=== PATIENT | female | born 1970 | race Caucasian/White ===

== ENCOUNTER 2021-06-08 15:16 | Outpatient (REF) | payer OTHER, SELFPAY ==
[2021-06-09 04:26] LABS: HIV AB/AG Nonreactive (Nonreactive)
== END 2021-06-08 15:17 | disposition home or self-care (01) ==
LOC: HO.LAB 15:16
PROVIDERS: PCP Internal Medicine; Visit Provider Nurse Practitioner Psychiatric/Mental Health
DX: F33.2 Major depressive disorder, recurrent severe without psychotic features (principal)
CPT/HCPCS: 36415; 87389

== ENCOUNTER 2021-07-01 10:45 | Outpatient (RCR) | payer OTHER, MEDICARE, SELFPAY ==
--- NOTE | 2021-06-04 14:20 | PC.NURSE ---
Case opened in treatment team
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
[2021-06-05 13:33] VITALS: BMI 40.3
--- NOTE | 2021-06-05 13:59 | PC.ADMIT ---
Patient is a 50 year old female who self referred back to [facility] d/t increase in depression, anxiety, and PTSD. Patient reports she was at [facility] during the start of the pandemic and stated the program was helpful. Patient reports stressors include prior to Thanksgiving she started noticing an increase in depression and anxiety symptoms as she reports her left her three years ago Thankslupe Bolden and her last boyfriend left her last year at this time. Patient struggling with depression and anxiety and is tearful. Reports taking a leave of absence from work d/t symptoms. Patient also reports she was dx with an STD Gonorrhea and was experiencing pelvic pain. She stated was treated with Penicillin IM and went to [facility] where she had a pelvic and abdominal CT scan to f/u. Patient is alert and oriented x4. calm and cooperative. tearful at times during the assessment. Denied SI. Medications reconciled with patient and patient's pharmacy. Patient reports taking medications as prescribed. Patient is interested in HIV testing. Eugenie Espinoza NP is aware.
--- NOTE | 2021-06-10 16:08 | HO.PHPPROGNO ---
Subjective Subjective Date of Service: 06/10/21 Reason For Visit: MDD recurrent, Borderline Personality D/o, Anxiety Guardianship: No Medical Problems Affecting Mental Status: No Interim History: Zena reports feeling stable, but teary at times . She explains that she is doing okay overall. She reports her stepfather recently, and that she has difficulty with a lot of relationships that have ended around this time of year. She reports that she feels come will in groups, and she feels safe and them. Denies any thoughts of harm to self or others, no safety concern at this time. Reports that she did have some difficulty falling asleep last night, but she believes it is more related to time of year rather than medications. She reported that she used lorazepam last night to help fall asleep. She explains that she believes the transition regarding her med changes from Effexor to Cymbalta at is going smoothly, but she is finding herself sweating at night. She believes it is from the medication, and not possibly being perimenopausal. She does have an upcoming appointment with her outpatient psych provider, as well as with her tax collection coordinator. She will discuss the symptoms further with each of them. Medication Compliance: Yes Side effects from medications: Yes (diaphoresis at night) Attending Groups: Yes Review of Systems Acute medical concerns: No Medical Review of Systems: unchanged Review of Systems Review of Systems Yes all other systems are reviewed and are negative Constitutional: Reports no additional constitutional complaints Mental Status Exam Mental Status Exam Narrative: Well-developed, obese female, in NAD. Patient Appearance: Fatigued and Appropriate Patient Orientation: Person, Place, Time and Situation Level of Consciousness: Awake, Appropriate and Alert Patient Behavior: Appropriate, Cooperative and Good Eye Contact Mood Description: Appropriate and Depressed Affect Description: Appropriate and Depressed Patient Cognition Impaired: No Ability to Follow Directions: Excellent Speech Pattern: Clear, Appropriate, Spontaneous Speech and Coherent Memory Description: Intact Hallucinations: None Delusions: Not Present Thought Process: Intact, Goal Oriented and Linear Thought Content: positive for Intact, positive for Goal Oriented and positive for Linear Depressive Symptoms: Increased Anxiety, Difficulty Sleeping, Crying Spells, Loss of Int. in Activity, Feelings of Worthlessness, Hopelessness, Feelings of Guilt, Unhappiness, Increased Fatigue and Low Self Esteem Judgement: Fair Diagnostics Vital Signs (24Hr): BMI result Body Mass Index 40.3 Assessment & Plan Assessment & Plan (1) Major depressive disorder, recurrent severe without psychotic features: Status: Acute Code(s): F33.2 - Major depressive disorder, recurrent severe without psychotic features Assessment and Plan: Overall stable, no SI, no safety concern. Continues with dysphoric mood, teary at times, but states overall mood is okay. Taking medications as prescribed. Currently in process of taper down off of Effexor and on to Cymbalta. Reports some sweating at night, not sure if it is due to the medication transition. No other concerns at this time. Participating in groups, finding them helpful. (2) Generalized anxiety disorder: Status: Acute Code(s): F41.1 - Generalized anxiety disorder (3) Borderline personality disorder: Status: Acute Code(s): F60.3 - Borderline personality disorder Assessment and Plan: 1. No medication changes at this time. Client to continue medication regimen as prescribed by her outpatient provider. 2. Follow-up as per protocol. Patient educated on: diagnosis, medication risk/benefits and therapeutic strategies Informed Consent: understands Reason for contiued partial hosp. stay Substantial Risk for: inability to function and med/psych decompensation Certification I certify that partial hospital treatment is medically necessary due to the symptoms and problems resulting from the patient's mental illness and the failure to treat the patient at the partial hospital level of care would likely result in the patient requiring inpatient psychiatric care which could not be prevented at a less intensive level of care. I spent minutes with the patient and/or on the patient floor today, greater than?50% of which was spent counseling/coordinating care. Discharge Plan Discharge Attending provider: Jesus Ramirez Primary Care Provider: Florin Lima Medications: No Action clonazepam [Klonopin] 0.5 mg Tablet 0.5 mg PO DAILY PRN (Reason: Anxiety) RF: 0 venlafaxine [Effexor XR] 150 mg Capsule,Extended Release 24hr 150 mg PO DAILY RF: 0 valacyclovir [Valtrex] 500 mg Tablet 500 mg PO DAILY RF: 0 trazodone 100 mg Tablet 400 mg PO BEDTIME PRN (Reason: Insomnia) RF: 0 lorazepam 2 mg Tablet 1 mg PO DAILY RF: 0 lorazepam 2 mg Tablet 3 mg PO BEDTIME RF: 0 montelukast [Singulair] 10 mg Tablet 10 mg PO BEDTIME RF: 0 albuterol sulfate 90 mcg/actuation Hfa Aerosol Inhaler 2 puff INHALATION Q6H PRN (Reason: Shortness Of Breath) RF: 0 dextroamphetamine-amphetamine [Adderall XR] 30 mg Capsule,Extended Release 24hr 60 mg PO DAILY RF: 0 naproxen 500 mg Tablet 500 mg PO BID RF: 0 duloxetine [Cymbalta] 30 mg Capsule,Delayed Release(Dr/Ec) 60 mg PO DAILY RF: 0 oxycodone 10 mg Tablet 10 mg PO Q4H PRN (Reason: Pain) RF: 0 Rexulti 4 mg Tablet 4 mg PO BEDTIME RF: 0 Referrals: Florin Lima MD [Primary Care Provider] - 1 Week Telehealth Telehealth Location of provider rendering services: practice address Location of patient: address on file Patient Identification confirmed using: Name, : Yes Telehealth method: video Patient verbally consented to treatment: Yes Patient verbally consented to billing insurance company: Yes Patient informed of any privacy concerns related to visit: Yes Time spent with patient (mins): 15
--- NOTE | 2021-06-17 16:34 | HO.PHPPROGNO ---
Subjective Subjective Date of Service: 06/17/21 Reason For Visit: MDD recurrent, Borderline Personality D/o, Anxiety Guardianship: No Medical Problems Affecting Mental Status: No Interim History: Luz Elena reports feeling ?much better ?today. Reports that Tuesday will be her last day taking Effexor, as she has been tapering down off the medication. Denies any type of side effects during taper down. No thoughts of harm to self or others, no safety concern. Medication Compliance: Yes Side effects from medications: No Attending Groups: Yes Review of Systems Acute medical concerns: No Medical Review of Systems: unchanged Review of Systems Review of Systems Yes all other systems are reviewed and are negative Constitutional: Reports no additional constitutional complaints Mental Status Exam Mental Status Exam Narrative: Well-developed, obese female, in NAD. Patient Appearance: Appropriate Patient Orientation: Person, Place, Time and Situation Level of Consciousness: Awake, Appropriate and Alert Patient Behavior: Appropriate, Cooperative and Good Eye Contact Mood Description: Calm and Appropriate Affect Description: Appropriate and Depressed Patient Cognition Impaired: No Ability to Follow Directions: Excellent Speech Pattern: Clear, Appropriate and Coherent Memory Description: Intact Hallucinations: None Delusions: Not Present Thought Process: Intact, Goal Oriented and Linear Thought Content: positive for Intact, positive for Goal Oriented, positive for Linear and positive for Logical Depressive Symptoms: Increased Anxiety, Difficulty Sleeping, Loss of Int. in Activity, Hopelessness, Feelings of Guilt, Unhappiness, Increased Fatigue and Low Self Esteem Judgement: Fair Diagnostics Vital Signs (24Hr): BMI result Body Mass Index 40.3 Assessment & Plan Assessment & Plan (1) Major depressive disorder, recurrent severe without psychotic features: Status: Acute Code(s): F33.2 - Major depressive disorder, recurrent severe without psychotic features Assessment and Plan: Zena continues with some depression and anxiety symptoms, but reports feeling improved. Describes her mood today as ?much better ?. Services for her mother's partner will be tonight and tomorrow. Mother is staying with her until June 30. She denies any thoughts of harm to self or others, no safety concern. Reports that current medication regimen is working well, and does not feel she has any symptoms that would require any medication adjustments at this time. (2) Generalized anxiety disorder: Status: Acute Code(s): F41.1 - Generalized anxiety disorder (3) Borderline personality disorder: Status: Acute Code(s): F60.3 - Borderline personality disorder Assessment and Plan: 1. Continue with current medications as prescribed. 2. Continue with PHP treatment plan. 3. Follow-up as per protocol. Patient educated on: diagnosis, medication risk/benefits and therapeutic strategies Informed Consent: understands Reason for contiued partial hosp. stay Substantial Risk for: inability to function and med/psych decompensation Certification I certify that partial hospital treatment is medically necessary due to the symptoms and problems resulting from the patient's mental illness and the failure to treat the patient at the partial hospital level of care would likely result in the patient requiring inpatient psychiatric care which could not be prevented at a less intensive level of care. I spent minutes with the patient and/or on the patient floor today, greater than?50% of which was spent counseling/coordinating care. Discharge Plan Discharge Attending provider: Jesus Ramirez Primary Care Provider: Florin Lima Medications: Continued Rexulti 4 mg Tablet 4 mg PO BEDTIME 14 Days Qty: 14 RF: 0 No Action clonazepam [Klonopin] 0.5 mg Tablet 0.5 mg PO DAILY PRN (Reason: Anxiety) RF: 0 venlafaxine [Effexor XR] 150 mg Capsule,Extended Release 24hr 150 mg PO DAILY RF: 0 valacyclovir [Valtrex] 500 mg Tablet 500 mg PO DAILY RF: 0 trazodone 100 mg Tablet 400 mg PO BEDTIME PRN (Reason: Insomnia) RF: 0 lorazepam 2 mg Tablet 1 mg PO DAILY RF: 0 lorazepam 2 mg Tablet 3 mg PO BEDTIME RF: 0 montelukast [Singulair] 10 mg Tablet 10 mg PO BEDTIME RF: 0 albuterol sulfate 90 mcg/actuation Hfa Aerosol Inhaler 2 puff INHALATION Q6H PRN (Reason: Shortness Of Breath) RF: 0 dextroamphetamine-amphetamine [Adderall XR] 30 mg Capsule,Extended Release 24hr 60 mg PO DAILY RF: 0 naproxen 500 mg Tablet 500 mg PO BID RF: 0 duloxetine [Cymbalta] 30 mg Capsule,Delayed Release(Dr/Ec) 60 mg PO DAILY RF: 0 oxycodone 10 mg Tablet 10 mg PO Q4H PRN (Reason: Pain) RF: 0 Referrals: Florin Lima MD [Primary Care Provider] - 1 Week Telehealth Telehealth Location of provider rendering services: practice address Location of patient: address on file Patient Identification confirmed using: Name, : Yes Telehealth method: video Patient verbally consented to treatment: Yes Patient verbally consented to billing insurance company: Yes Patient informed of any privacy concerns related to visit: Yes Time spent with patient (mins): 15
--- NOTE | 2021-06-23 10:48 | P.PNPSP_ITS ---
Subjective Subjective Date of Service: 06/23/21 Reason For Visit: MDD recurrent, Borderline Personality D/o, Anxiety Interim History: I evaluated the pt this morning and upon interview she reports she is still titrating off effexor, as her outpt psych provider did not send the 37.5 mg formulation of effexor and that's what she needed to get off it (does not need refill, as she says this has now been sent in). Otherwise, pt says im doing okay. Pt continues to have psychosocial stressors, attended her mother's partner's and says it was trying. Feels like she is the black sheep of her family. Denies issues with sleep. Says her energy is a little bit lagging, but attributes this to lack of daytime structure and shorter days in the winter. Denies issues attending to ADLs. Appetite is good. Denies having questions or concerns. Medication Compliance: Yes Side effects from medications: No Attending Groups: Yes Review of Systems Acute medical concerns: No Medical Review of Systems: unchanged Mental Status Exam Mental Status Exam Narrative: Well-developed, obese female, in NAD. Patient Appearance:?Appropriate Patient Orientation:?Person, Place, Time and Situation Level of Consciousness:?Awake, Appropriate and Alert Patient Behavior:?Appropriate, Cooperative and Good Eye Contact Mood Description:?Calm and Appropriate Affect Description:?Appropriate and Depressed Patient Cognition Impaired:?No Ability to Follow Directions:?Excellent Speech Pattern:?Clear, Appropriate and Coherent Memory Description:?Intact Hallucinations:?None Delusions:?Not Present Thought Process:?Intact, Goal Oriented and Linear Thought Content:?positive for Intact, positive for Goal Oriented, positive for Linear and positive for Logical Depressive Symptoms:?Increased Anxiety, Difficulty Sleeping, Loss of Int. in Activity, Hopelessness, Feelings of Guilt, Unhappiness, Increased Fatigue and Low Self Esteem Judgment:?Fair Diagnostics Vital Signs (24Hr): BMI result Body Mass Index 40.3 Assessment & Plan Assessment & Plan (1) Borderline personality disorder: Status: Acute Code(s): F60.3 - Borderline personality disorder (2) Generalized anxiety disorder: Status: Acute Code(s): F41.1 - Generalized anxiety disorder (3) Major depressive disorder, recurrent severe without psychotic features: Status: Acute Code(s): F33.2 - Major depressive disorder, recurrent severe without psychotic features Assessment and Plan: Mother is staying with her until June 30.? She denies any thoughts of harm to self or others, no safety concern.?She is continuing to work on titrating off effexor and switching to duloxetine with her outpt psychiatrist. She reports mood stability and does not want med adjustments at this time, does not need refills. Assessment and Plan: 1. Continue with current medications as prescribed. 2. Continue with PHP treatment plan. 3. Follow-up as per protocol. Certification I certify that partial hospital treatment is medically necessary due to the symptoms and problems resulting from the patient's mental illness and the failure to treat the patient at the partial hospital level of care would likely result in the patient requiring inpatient psychiatric care which could not be prevented at a less intensive level of care. I spent minutes with the patient and/or on the patient floor today, greater than?50% of which was spent counseling/coordinating care. Discharge Plan Discharge Attending provider: Jesus Ramirez Primary Care Provider: Florin Lima Additional Instructions: [facility] jordana Talavera [facility] 07/02 @ 4 pm , Alvina Rome MD Medications: Continued Rexulti 4 mg Tablet 4 mg PO BEDTIME 14 Days Qty: 14 RF: 0 No Action clonazepam [Klonopin] 0.5 mg Tablet 0.5 mg PO DAILY PRN (Reason: Anxiety) RF: 0 venlafaxine [Effexor XR] 150 mg Capsule,Extended Release 24hr 150 mg PO DAILY RF: 0 valacyclovir [Valtrex] 500 mg Tablet 500 mg PO DAILY RF: 0 trazodone 100 mg Tablet 400 mg PO BEDTIME PRN (Reason: Insomnia) RF: 0 lorazepam 2 mg Tablet 1 mg PO DAILY RF: 0 lorazepam 2 mg Tablet 3 mg PO BEDTIME RF: 0 montelukast [Singulair] 10 mg Tablet 10 mg PO BEDTIME RF: 0 albuterol sulfate 90 mcg/actuation Hfa Aerosol Inhaler 2 puff INHALATION Q6H PRN (Reason: Shortness Of Breath) RF: 0 dextroamphetamine-amphetamine [Adderall XR] 30 mg Capsule,Extended Release 24hr 60 mg PO DAILY RF: 0 naproxen 500 mg Tablet 500 mg PO BID RF: 0 duloxetine [Cymbalta] 30 mg Capsule,Delayed Release(Dr/Ec) 60 mg PO DAILY RF: 0 oxycodone 10 mg Tablet 10 mg PO Q4H PRN (Reason: Pain) RF: 0 Referrals: Florin Lima MD [Primary Care Provider] - 1 Week Stand Alone Forms: Patient Portal Discharge page
--- NOTE | 2021-06-24 14:55 | PC.NURSE ---
referral was made for a therapist at [facility] they will gat back to me with appointment time.
--- NOTE | 2021-06-30 10:50 | PC.NURSE ---
Patient scheduled for discharge from the program today. Patient reports feeling ready for discharge however is feeling sad as her mother left today. Patient denied SI or any safety issues. She has the crisis number if she ever needed it. Reviewed patient medications with nenita. She reports taking medicaitons as prescrib
--- NOTE | 2021-06-30 11:17 | PC.NURSE ---
Patient is scheduled to discharge from the program today. Patient feeling ready for discharge however she stated she was sad as her mother left today. Denied SI or any safety concerns. She has the crisis number if she ever needed it. reviewed patient medications with patient. she reports taking medications as prescribed.
--- NOTE | 2021-06-30 15:53 | HO.PHPPROGNO ---
Subjective Subjective Date of Service: 06/30/21 Reason For Visit: MDD recurrent, Borderline Personality D/o, Anxiety Interim History: I evaluated the pt this morning and upon interview she reports she is now off the effexor and she did have any disontinuation sx. Tomorrow is last day at [facility]. Says she is doing okay, feels a little sad mom as her left today, feeling lonely but talks to her mom daily. Goes back to work on Tuesday, which she is looking forward to. Says I'm fine with her medication right now. Feeling stable, safe. Overall, says I feel like myself again. Sleep is fine. Appetite is good. Says I think the cymbalta has taken away a lot of my pains and aches. Has a new therapist, sees her on .? Medication Compliance: Yes Side effects from medications: No Attending Groups: Yes Review of Systems Acute medical concerns: No Medical Review of Systems: unchanged Mental Status Exam Mental Status Exam Narrative: Well-developed, obese female, in NAD. Patient Appearance:?Appropriate Patient Orientation:?Person, Place, Time and Situation Level of Consciousness:?Awake, Appropriate and Alert Patient Behavior:?Appropriate, Cooperative and Good Eye Contact Mood Description:?Calm and Appropriate, better Affect Description:?Appropriate and calm Patient Cognition Impaired:?No Ability to Follow Directions:?Excellent Speech Pattern:?Clear, Appropriate and Coherent Memory Description:?Intact Hallucinations:?None Delusions:?Not Present Thought Process:?Intact, Goal Oriented and Linear Thought Content:?positive for Intact, positive for Goal Oriented, positive for Linear and positive for Logical Judgment:?Fair Diagnostics Vital Signs (24Hr): BMI result Body Mass Index 40.3 Assessment & Plan Assessment & Plan (1) Major depressive disorder, recurrent severe without psychotic features: Status: Acute Code(s): F33.2 - Major depressive disorder, recurrent severe without psychotic features (2) Borderline personality disorder: Status: Acute Code(s): F60.3 - Borderline personality disorder (3) Generalized anxiety disorder: Status: Acute Code(s): F41.1 - Generalized anxiety disorder Assessment and Plan: Pt does not want med adjustments, has been working with her OP psychiatrist, Dr. Alvina Rome on med changes and reports positive benefit on cymbalta for sx of depression and anxiety. Stable, says she feels safe and that PHP groups have been helpful. 1. Continue with current medications as prescribed. 2. Continue with PHP treatment plan. 3. Follow-up as per protocol. 4. Discharge upon stabilization. Does not need refills. Patient educated on: medication risk/benefits and therapeutic strategies Certification I certify that partial hospital treatment is medically necessary due to the symptoms and problems resulting from the patient's mental illness and the failure to treat the patient at the partial hospital level of care would likely result in the patient requiring inpatient psychiatric care which could not be prevented at a less intensive level of care. I spent minutes with the patient and/or on the patient floor today, greater than?50% of which was spent counseling/coordinating care. Discharge Plan Discharge Attending provider: Jesus Ramirez Primary Care Provider: Florin Lima Additional Instructions: MARILU [employer]IE[employer] EXECUT[employer] MANAGING DIRECTOR 07/02 @ 4 pm , Alvina Rome MD Medications: Continued Rexulti 4 mg Tablet 4 mg PO BEDTIME 14 Days Qty: 14 RF: 0 No Action clonazepam [Klonopin] 0.5 mg Tablet 0.5 mg PO DAILY PRN (Reason: Anxiety) RF: 0 valacyclovir [Valtrex] 500 mg Tablet 500 mg PO DAILY RF: 0 trazodone 100 mg Tablet 400 mg PO BEDTIME PRN (Reason: Insomnia) RF: 0 lorazepam 2 mg Tablet 1 mg PO DAILY RF: 0 lorazepam 2 mg Tablet 3 mg PO BEDTIME RF: 0 montelukast [Singulair] 10 mg Tablet 10 mg PO BEDTIME RF: 0 albuterol sulfate 90 mcg/actuation Hfa Aerosol Inhaler 2 puff INHALATION Q6H PRN (Reason: Shortness Of Breath) RF: 0 dextroamphetamine-amphetamine [Adderall XR] 30 mg Capsule,Extended Release 24hr 60 mg PO DAILY RF: 0 naproxen 500 mg Tablet 500 mg PO BID RF: 0 duloxetine [Cymbalta] 30 mg Capsule,Delayed Release(Dr/Ec) 60 mg PO DAILY RF: 0 oxycodone 10 mg Tablet 10 mg PO Q4H PRN (Reason: Pain) RF: 0 Referrals: Florin Lima MD [Primary Care Provider] - 1 Week Stand Alone Forms: Patient Portal Discharge page
== END 2021-07-02 07:12 | disposition home or self-care (01) ==
LOC: HO.PHPA 10:45
PROVIDERS: PCP Internal Medicine; Visit Provider Psychiatry & Neurology Psychiatry
DX: F33.2 Major depressive disorder, recurrent severe without psychotic features (principal); F41.1 Generalized anxiety disorder; F60.3 Borderline personality disorder; Z79.899 Other long term (current) drug therapy
CPT/HCPCS: 90791; 90853

== ENCOUNTER 2021-09-02 10:15 | Outpatient (RCR) | payer OTHER, SELFPAY ==
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
--- NOTE | 2021-08-05 15:14 | PC.ADMIT ---
Patient is a 50 year old female who was referred to [facility] by her psychiatrist Dr Fabian Rome d/t increased sxs of depression and anxiety. Patient denied SI. Reports having thoughts that she is worthless, useless, and am a burden to others. Patient stated she feels lonely and is crying all the time. Patient also stated she has not been able to get a therapist as she is on wait lists for a therapist. Patient stated she started to call out of work d/t symptoms and is currently on a leave of absence from work to work on her mental health. She stated she found the program helpful when she was here recently over a month ago. Patient is alert and oriented x4. Calm and cooperative. Presents with depressed mood and affect. Medications reconciled with patient and patient's pharmacy. Educated patient about PRN Klonopin including patient reports taking it with Ativan at . Emailed patient safety plan.
--- NOTE | 2021-08-06 14:14 | PC.NURSE ---
case opened in treatment team
--- NOTE | 2021-08-07 12:46 | PC.NURSE ---
Patient called to say she was not going to be able to finish the day as she is sick experiencing some vomiting and diarrhea. Asked if she needed to see a doctor and she stated she would be alright and she is drinking fluids. Denied SI. Stated she has plans for the weekend meeting with friends and being with G[place].
--- NOTE | 2021-08-12 16:07 | HO.PHPPROGNO ---
Subjective Subjective Date of Service: 08/12/21 Reason For Visit: MDD Guardianship: No Medical Problems Affecting Mental Status: No Interim History: Reports feeling ?not that great today ?. Tearful during encounter. Denies SI, either active or passive. Reports that she is ?just really depressed ?, but states ?I am safe?. Reports that she feels her depression has been worsening. She says she has an appointment with her outpatient psychiatrist on August 20, but plans to call the office to see if she can be seen sooner. Does not want any medication changes today. Her medications were reviewed, including each medication, doses, etc.. She states that she is not suicidal, but has been thinking that she may need a higher level of care. We discussed this. She has tried respite in the past, but did not like it. I encouraged her to call crisis, or come to hospital so that we may help her. She states that she ?needs to sit with it for a couple of days ?. She has agreed to call crisis and to notify us if at any time she feels unsafe. Medication Compliance: Yes Side effects from medications: No Attending Groups: Yes Review of Systems Acute medical concerns: No Medical Review of Systems: unchanged Review of Systems Review of Systems Yes all other systems are reviewed and are negative Constitutional: Reports no additional constitutional complaints Mental Status Exam Mental Status Exam Narrative: NAD. Appropriately dressed and groomed. no abnormal movements, no tics / tremors. Patient Appearance: Well Grooomed, Fatigued and Appropriate Patient Orientation: Person, Place, Time and Situation Level of Consciousness: Awake, Appropriate and Alert Patient Behavior: Appropriate, Cooperative, Good Eye Contact and Crying (Tearful at times.) Mood Description: Depressed Affect Description: Depressed Patient Cognition Impaired: No Ability to Follow Directions: Good Speech Pattern: Clear, Appropriate and Coherent Memory Description: Intact Hallucinations: None Delusions: Not Present Perceptual Disturbances: Depersonalization Thought Process: Intact, Goal Oriented and Linear Thought Content: positive for Intact Depressive Symptoms: Increased Anxiety, Diff. Making Decisions, Loss of Int. in Activity, Feelings of Worthlessness, Hopelessness, Isolating-Friends/Family, Feelings of Guilt, Unhappiness, Increased Fatigue, Low Self Esteem, Loss of Energy and Difficulty Concentrating Judgement: Fair Assessment & Plan Assessment & Plan (1) Major depressive disorder, recurrent severe without psychotic features: Status: Acute Code(s): F33.2 - Major depressive disorder, recurrent severe without psychotic features Assessment and Plan: Reports she feels her depression is getting worse. Reviewed medications, does not want increase at this time. Has been contemplating whether or not she may need a higher level of care. Has denies any thought of harm to self or others, no safety concern. Tearful at times. She was encouraged to call crisis and us if at any time she feels unsafe. She stated that she would do so. (2) Generalized anxiety disorder: Status: Acute Code(s): F41.1 - Generalized anxiety disorder (3) Borderline personality disorder: Status: Acute Code(s): F60.3 - Borderline personality disorder Plan 1. Continue with current medication regimen. 2. Continue with current [facility] plan of care. 3. Follow-up as per protocol. Patient educated on: diagnosis, medication risk/benefits and therapeutic strategies Informed Consent: understands Reason for contiued partial hosp. stay Substantial Risk for: harm to self, inability to function, rapid decompensation and med/psych decompensation Certification I certify that partial hospital treatment is medically necessary due to the symptoms and problems resulting from the patient's mental illness and the failure to treat the patient at the partial hospital level of care would likely result in the patient requiring inpatient psychiatric care which could not be prevented at a less intensive level of care. I spent minutes with the patient and/or on the patient floor today, greater than?50% of which was spent counseling/coordinating care. Discharge Plan Discharge Attending provider: Jesus Ramirez Medications: No Action clonazepam [Klonopin] 0.5 mg Tablet 0.5 mg PO DAILY PRN (Reason: Anxiety) 0RF valacyclovir [Valtrex] 500 mg Tablet 500 mg PO DAILY 0RF trazodone 100 mg Tablet 400 mg PO BEDTIME PRN (Reason: Insomnia) 0RF Rx Instructions: 4 tabs QHS PRN lorazepam 2 mg Tablet 1 mg PO DAILY 0RF Rx Instructions: Take 1/2 tab daily in the am lorazepam 2 mg Tablet 3 mg PO BEDTIME 0RF Rx Instructions: Take 1 and 1/2 tab at HS montelukast [Singulair] 10 mg Tablet 10 mg PO BEDTIME 0RF albuterol sulfate 90 mcg/actuation Hfa Aerosol Inhaler 2 puff INHALATION Q6H PRN (Reason: Shortness Of Breath) 0RF dextroamphetamine-amphetamine [Adderall XR] 30 mg Capsule,Extended Release 24hr 60 mg PO DAILY 0RF Rx Instructions: Take 2 tabs daily oxycodone 10 mg Tablet 10 mg PO Q4H PRN (Reason: Pain) 0RF duloxetine 60 mg Capsule,Delayed Release(Dr/Ec) 120 mg PO DAILY 0RF Rx Instructions: Take 2 tabs daily. Rexulti 4 mg tablet 4 mg PO DAILY 0RF lisinopril 5 mg Tablet 5 mg PO DAILY 0RF Label Comments: Patient stated she takes 2 tabs daily??? Pharmacy states 1 tab daily, Picked up at 30 day supply on 06/29/21. bupropion HCl [Wellbutrin XL] 150 mg Tablet Extended Release 24 Hr 150 mg PO QAM 0RF Telehealth Telehealth Location of provider rendering services: practice address Location of patient: address on file Patient Identification confirmed using: Name, : Yes Telehealth method: video Patient verbally consented to treatment: Yes Patient verbally consented to billing insurance company: Yes Patient informed of any privacy concerns related to visit: Yes Time spent with patient (mins): 20
--- NOTE | 2021-08-21 10:56 | HO.PHPPROGNO ---
Subjective Subjective Date of Service: 08/21/21 Reason For Visit: MDD Guardianship: No Medical Problems Affecting Mental Status: No Interim History: Zena describes mood today as I don't really know . Says not really good or bad, in the middle . No SI reported, no safety concern. Has had med changes with outpatient provider: Stopped Wellbutrin. Tapering off of Cymbalta. Started Zoloft. Sitting up appointment with new therapist today through [facility]. Will start working with a woman's anxiety support group through 0. Also in contact with [facility], for possible therapy/support group work. Medication Compliance: Yes Side effects from medications: No Attending Groups: Yes Review of Systems Acute medical concerns: No Medical Review of Systems: unchanged Review of Systems Review of Systems Yes all other systems are reviewed and are negative Constitutional: Reports no additional constitutional complaints Mental Status Exam Mental Status Exam Narrative: NAD. Appropriately dressed and groomed. no abnormal movements, no tics / tremors. Patient Appearance: Well Grooomed and Appropriate Patient Orientation: Person, Place, Time and Situation Level of Consciousness: Awake, Appropriate and Alert Patient Behavior: Appropriate, Cooperative and Good Eye Contact Mood Description: Calm and Appropriate Affect Description: Depressed and Flat Patient Cognition Impaired: No Ability to Follow Directions: Excellent Speech Pattern: Clear, Appropriate and Coherent Memory Description: Intact Hallucinations: None Delusions: Not Present Perceptual Disturbances: Depersonalization Thought Process: Intact, Goal Oriented and Linear Thought Content: positive for Intact, positive for Goal Oriented and positive for Linear Depressive Symptoms: Increased Anxiety, Loss of Int. in Activity, Feelings of Worthlessness, Hopelessness, Feelings of Guilt, Unhappiness, Increased Fatigue, Low Self Esteem and Loss of Energy Judgement: Fair Assessment & Plan Assessment & Plan (1) Major depressive disorder, recurrent severe without psychotic features: Status: Acute Code(s): F33.2 - Major depressive disorder, recurrent severe without psychotic features Assessment and Plan: Reports feeling neither happy or sad, but at some point in middle. Continues with depressive symptoms, no SI at this time, no safety concern. had recent medication changes, due to poor efficacy with Cymbalta and Wellbutrin. Has been started on Zoloft, and process of tapering up. Has discuss plan with outpatient provider, that if continues with symptoms of depression after trial of Zoloft, will consider TMS going forward. Patient has been working on finding a therapist, will speak with somebody on the phone today. She also has found a woman's anxiety support group, which she plans to start when she is done with this program. (2) Generalized anxiety disorder: Status: Acute Code(s): F41.1 - Generalized anxiety disorder Plan 1. Continue with current medications as prescribed by outpatient provider, chart has been updated with recent changes. 2. Continue to follow current [facility] plan of care. 3. Follow-up as per protocol. Patient educated on: diagnosis, medication risk/benefits and therapeutic strategies Informed Consent: understands Reason for contiued partial hosp. stay Substantial Risk for: harm to self, inability to function and med/psych decompensation Certification I certify that partial hospital treatment is medically necessary due to the symptoms and problems resulting from the patient's mental illness and the failure to treat the patient at the partial hospital level of care would likely result in the patient requiring inpatient psychiatric care which could not be prevented at a less intensive level of care. I spent minutes with the patient and/or on the patient floor today, greater than?50% of which was spent counseling/coordinating care. Discharge Plan Discharge Attending provider: Jesus Ramirez Medications: No Action clonazepam [Klonopin] 0.5 mg Tablet 0.5 mg PO DAILY PRN (Reason: Anxiety) 0RF valacyclovir [Valtrex] 500 mg Tablet 500 mg PO DAILY 0RF trazodone 100 mg Tablet 400 mg PO BEDTIME PRN (Reason: Insomnia) 0RF Rx Instructions: 4 tabs QHS PRN lorazepam 2 mg Tablet 1 mg PO DAILY 0RF Rx Instructions: Take 1/2 tab daily in the am lorazepam 2 mg Tablet 3 mg PO BEDTIME 0RF Rx Instructions: Take 1 and 1/2 tab at HS montelukast [Singulair] 10 mg Tablet 10 mg PO BEDTIME 0RF albuterol sulfate 90 mcg/actuation Hfa Aerosol Inhaler 2 puff INHALATION Q6H PRN (Reason: Shortness Of Breath) 0RF dextroamphetamine-amphetamine [Adderall XR] 30 mg Capsule,Extended Release 24hr 60 mg PO DAILY 0RF Rx Instructions: Take 2 tabs daily oxycodone 10 mg Tablet 10 mg PO Q4H PRN (Reason: Pain) 0RF duloxetine 60 mg Capsule,Delayed Release(Dr/Ec) See Rx Instructions .ROUTE .COMPLEX 0RF Label Comments: Patient reports she is tapering off this with her prescriber. Rx Instructions: Tapering off. 90 mg x 1 week then 60 mg x 1 week then 30 mg x 1 week then discontinue. Rexulti 4 mg tablet 4 mg PO DAILY 0RF lisinopril 5 mg Tablet 5 mg PO DAILY 0RF Label Comments: Patient stated she takes 2 tabs daily??? Pharmacy states 1 tab daily, Picked up at 30 day supply on 06/29/21. sertraline [Zoloft] 25 mg Tablet 75 mg PO DAILY 0RF Label Comments: 08/19/21 Patient reports her outside prescriber put her on Zoloft 75 mg daily. Telehealth Telehealth Location of provider rendering services: practice address Location of patient: address on file Patient Identification confirmed using: Name, : Yes Telehealth method: video Patient verbally consented to treatment: Yes Patient verbally consented to billing insurance company: Yes Patient informed of any privacy concerns related to visit: Yes Time spent with patient (mins): 15
--- NOTE | 2021-08-24 15:20 | PC.NURSE ---
I left a message at [facility] for the dry starch supervisor to call me to discuss options for a clinician for Zena
--- NOTE | 2021-08-25 11:35 | PC.NURSE ---
I spoke with Shaneka KEE at [facility]. She will be able to see Zena 09/01/21 at 1030
--- NOTE | 2021-08-27 08:47 | PC.NURSE ---
The client called out sick
--- NOTE | 2021-08-28 14:22 | HO.PHPPROGNO ---
Subjective Subjective Date of Service: 08/28/21 Reason For Visit: MDD Guardianship: No Medical Problems Affecting Mental Status: No Interim History: Describes mood as ?not great?. States that she is having a tough couple of days. Reports difficulty with current medication changes, feels that nothing is working for her depression right now. Denies any thought of harm to self or others, no SI, states that she feels safe. Considering TMS if current med changes do not improve dysphoric mood. Medication Compliance: Yes Side effects from medications: No Attending Groups: Yes Review of Systems Acute medical concerns: No Medical Review of Systems: unchanged Review of Systems Review of Systems Yes all other systems are reviewed and are negative Constitutional: Reports no additional constitutional complaints Eyes: Reports no additional eye complaints Reports Normal hearing present Cardiovascular: Reports no additional cardiovascular complaints Reports Normal hearing present Mental Status Exam Mental Status Exam Narrative: NAD. Appropriately dressed and groomed. no abnormal movements, no tics / tremors. Patient Appearance: Well Grooomed and Fatigued Patient Orientation: Person, Place, Time and Situation Level of Consciousness: Awake, Appropriate and Alert Patient Behavior: Appropriate, Cooperative and Good Eye Contact Mood Description: Depressed Affect Description: Depressed and Flat Patient Cognition Impaired: No Ability to Follow Directions: Excellent Speech Pattern: Clear, Appropriate, Coherent and Soft-Spoken Memory Description: Intact Hallucinations: None Delusions: Not Present Perceptual Disturbances: Depersonalization Thought Process: Intact, Goal Oriented and Linear Thought Content: positive for Intact, positive for Goal Oriented, positive for Linear and positive for Logical Depressive Symptoms: Increased Anxiety, Crying Spells (Reports that she was anxious and tearful this morning, took lorazepam with positive affect.), Loss of Int. in Activity, Feelings of Worthlessness, Hopelessness, Isolating-Friends/Family, Feelings of Guilt, Unhappiness, Increased Fatigue, Low Self Esteem and Loss of Energy Judgement: Fair Assessment & Plan Assessment & Plan (1) Major depressive disorder, recurrent severe without psychotic features: Status: Acute Code(s): F33.2 - Major depressive disorder, recurrent severe without psychotic features Assessment and Plan: Describes mood as ?not great?. States that she is having a tough couple of days. Reports difficulty with current medication changes, feels that nothing is working for her depression right now. Currently on a taper down of duloxetine, with taper up of sertraline. Denies any thought of harm to self or others, no SI, states that she feels safe. Continues with dysphoric mood, reports that she was tearful this morning, took a lorazepam with positive affect. Reports that she is beginning to feel hopeless regarding medications, as nothing is working to help alleviate her symptoms of depression. Considering TMS if current med changes do not improve dysphoric mood. She is reporting that normally when she is almost done with partial she feels stable, and that at this time in her treatment, she does not feel stable nor ready to leave. (2) Borderline personality disorder: Status: Acute Code(s): F60.3 - Borderline personality disorder (3) Generalized anxiety disorder: Status: Acute Code(s): F41.1 - Generalized anxiety disorder Plan 1. Continue with current medications as prescribed by outpatient provider. Patient is in misdst of medication changes at this time with outpatient provider. 2. Continue with current [facility] plan of care. 3. Follow-up as per protocol. Patient educated on: diagnosis, medication risk/benefits, TMS and therapeutic strategies Informed Consent: understands Reason for contiued partial hosp. stay Substantial Risk for: harm to self, inability to function and med/psych decompensation Certification I certify that partial hospital treatment is medically necessary due to the symptoms and problems resulting from the patient's mental illness and the failure to treat the patient at the partial hospital level of care would likely result in the patient requiring inpatient psychiatric care which could not be prevented at a less intensive level of care. I spent minutes with the patient and/or on the patient floor today, greater than?50% of which was spent counseling/coordinating care. Discharge Plan Discharge Attending provider: Jesus Ramirez Medications: No Action clonazepam [Klonopin] 0.5 mg Tablet 0.5 mg PO DAILY PRN (Reason: Anxiety) 0RF valacyclovir [Valtrex] 500 mg Tablet 500 mg PO DAILY 0RF trazodone 100 mg Tablet 400 mg PO BEDTIME PRN (Reason: Insomnia) 0RF Rx Instructions: 4 tabs QHS PRN lorazepam 2 mg Tablet 1 mg PO DAILY 0RF Rx Instructions: Take 1/2 tab daily in the am lorazepam 2 mg Tablet 3 mg PO BEDTIME 0RF Rx Instructions: Take 1 and 1/2 tab at HS montelukast [Singulair] 10 mg Tablet 10 mg PO BEDTIME 0RF albuterol sulfate 90 mcg/actuation Hfa Aerosol Inhaler 2 puff INHALATION Q6H PRN (Reason: Shortness Of Breath) 0RF dextroamphetamine-amphetamine [Adderall XR] 30 mg Capsule,Extended Release 24hr 60 mg PO DAILY 0RF Rx Instructions: Take 2 tabs daily oxycodone 10 mg Tablet 10 mg PO Q4H PRN (Reason: Pain) 0RF duloxetine 60 mg Capsule,Delayed Release(Dr/Ec) See Rx Instructions .ROUTE .COMPLEX 0RF Label Comments: Patient reports she is tapering off this with her prescriber. Rx Instructions: Tapering off. 90 mg x 1 week then 60 mg x 1 week then 30 mg x 1 week then discontinue. Rexulti 4 mg tablet 4 mg PO DAILY 0RF lisinopril 5 mg Tablet 5 mg PO DAILY 0RF Label Comments: Patient stated she takes 2 tabs daily??? Pharmacy states 1 tab daily, Picked up at 30 day supply on 06/29/21. sertraline [Zoloft] 25 mg Tablet 75 mg PO DAILY 0RF Label Comments: 08/19/21 Patient reports her outside prescriber put her on Zoloft 75 mg daily. Telehealth Telehealth Location of provider rendering services: practice address Location of patient: address on file Patient Identification confirmed using: Name, : Yes Telehealth method: video Patient verbally consented to treatment: Yes Patient verbally consented to billing insurance company: Yes Patient informed of any privacy concerns related to visit: Yes Time spent with patient (mins): 20
--- NOTE | 2021-09-02 14:19 | PC.NURSE ---
Patient scheduled to discharge from [facility] today. Patient reports she, feels good regarding discharge. Denied SI, no safety concerns. Reviewed patient medications with patient. Patient reports taking medications as prescribed. Stated she is taking Lisinopril 10 mg daily not 5 mg daily and is tapering off Duloxetine and is currently taking 30 mg daily for 1 week then discontinuing medication. Patient also stated Sertraline increased to 100 mg daily from 75 mg daily.
--- NOTE | 2021-09-02 14:28 | HO.PHPPROGNO ---
Subjective Subjective Date of Service: 09/02/21 Reason For Visit: MDD Guardianship: No Medical Problems Affecting Mental Status: No Interim History: Zena reports she feels less depressed at this time, reports she feels hopeful for future. Believes the Zoloft is helping. Denies any thought of harm to self or others, no safety concern. Says that she feels ready to complete PHP and return to her work. Medication Compliance: Yes Side effects from medications: No Attending Groups: Yes Review of Systems Acute medical concerns: No Medical Review of Systems: unchanged Review of Systems Review of Systems Yes all other systems are reviewed and are negative Constitutional: Reports no additional constitutional complaints Mental Status Exam Mental Status Exam Narrative: NAD. Appropriately dressed and groomed. no abnormal movements, no tics / tremors. Patient Appearance: Well Grooomed and Appropriate Patient Orientation: Person, Place, Time and Situation Level of Consciousness: Awake, Appropriate and Alert Patient Behavior: Appropriate, Cooperative and Good Eye Contact Mood Description: Calm and Appropriate Affect Description: Appropriate Patient Cognition Impaired: No Ability to Follow Directions: Excellent Speech Pattern: Clear, Appropriate, Coherent and Soft-Spoken Memory Description: Intact Hallucinations: None Delusions: Not Present Perceptual Disturbances: Depersonalization Thought Process: Intact, Goal Oriented and Linear Thought Content: positive for Intact, positive for Goal Oriented, positive for Linear and positive for Logical Depressive Symptoms: Loss of Int. in Activity, Feelings of Guilt and Low Self Esteem Judgement: Good Assessment & Plan Assessment & Plan (1) Major depressive disorder, recurrent severe without psychotic features: Status: Acute Code(s): F33.2 - Major depressive disorder, recurrent severe without psychotic features Assessment and Plan: Zena reports feeling hopeful today. States that her symptoms of depression have greatly improved, and she believes it is due to the switch to sertraline. She denies any thought of harm to self or others, and plans to return to work soon. She states that she has less anxiety at this time as well. She reports that overall she feels stable for discharge. Does not need any medications [facility] at this time. (2) Generalized anxiety disorder: Status: Acute Code(s): F41.1 - Generalized anxiety disorder (3) Borderline personality disorder: Status: Acute Code(s): F60.3 - Borderline personality disorder Plan 1. Patient reported she was having difficulty with her computer, appointment was held via telephone. 2. Patient appears stable for discharge from [facility] at this time. 3. Patient will follow-up with outpatient providers going forward. Patient educated on: diagnosis, medication risk/benefits and therapeutic strategies Informed Consent: understands Reason for contiued partial hosp. stay Substantial Risk for: stable for discharge Certification I certify that partial hospital treatment is medically necessary due to the symptoms and problems resulting from the patient's mental illness and the failure to treat the patient at the partial hospital level of care would likely result in the patient requiring inpatient psychiatric care which could not be prevented at a less intensive level of care. I spent minutes with the patient and/or on the patient floor today, greater than?50% of which was spent counseling/coordinating care. Discharge Plan Discharge Attending provider: Jesus Ramirez Medications: No Action clonazepam [Klonopin] 0.5 mg Tablet 0.5 mg PO DAILY PRN (Reason: Anxiety) 0RF valacyclovir [Valtrex] 500 mg Tablet 500 mg PO DAILY 0RF trazodone 100 mg Tablet 400 mg PO BEDTIME PRN (Reason: Insomnia) 0RF Rx Instructions: 4 tabs QHS PRN lorazepam 2 mg Tablet 1 mg PO DAILY 0RF Rx Instructions: Take 1/2 tab daily in the am lorazepam 2 mg Tablet 3 mg PO BEDTIME 0RF Rx Instructions: Take 1 and 1/2 tab at HS montelukast [Singulair] 10 mg Tablet 10 mg PO BEDTIME 0RF albuterol sulfate 90 mcg/actuation Hfa Aerosol Inhaler 2 puff INHALATION Q6H PRN (Reason: Shortness Of Breath) 0RF dextroamphetamine-amphetamine [Adderall XR] 30 mg Capsule,Extended Release 24hr 60 mg PO DAILY 0RF Rx Instructions: Take 2 tabs daily oxycodone 10 mg Tablet 10 mg PO Q4H PRN (Reason: Pain) 0RF duloxetine 60 mg Capsule,Delayed Release(Dr/Ec) See Rx Instructions .ROUTE .COMPLEX 0RF Label Comments: Patient reports she is tapering off this with her prescriber. Rx Instructions: Tapering off. 90 mg x 1 week then 60 mg x 1 week then 30 mg x 1 week then discontinue. Rexulti 4 mg tablet 4 mg PO DAILY 0RF lisinopril 5 mg Tablet 5 mg PO DAILY 0RF Label Comments: Patient stated she takes 2 tabs daily??? Pharmacy states 1 tab daily, Picked up at 30 day supply on 06/29/21. sertraline [Zoloft] 25 mg Tablet 75 mg PO DAILY 0RF Label Comments: 08/19/21 Patient reports her outside prescriber put her on Zoloft 75 mg daily. Stand Alone Forms: Patient Portal Discharge page Telehealth Telehealth Location of provider rendering services: practice address Location of patient: address on file Patient Identification confirmed using: Name, : Yes Telehealth method: voice only Patient verbally consented to treatment: Yes Patient verbally consented to billing insurance company: Yes Patient informed of any privacy concerns related to visit: Yes Time spent with patient (mins): 20
--- NOTE | 2021-09-03 15:26 | PC.NURSE ---
I called and left a message regarding client discharge from [facility] with Shaneka KEE
== END 2021-09-02 23:59 | disposition home or self-care (01) ==
LOC: HO.PHPA 10:15
PROVIDERS: Visit Provider Psychiatry & Neurology Psychiatry
DX: F33.2 Major depressive disorder, recurrent severe without psychotic features (principal); F41.1 Generalized anxiety disorder; F60.3 Borderline personality disorder; Z79.899 Other long term (current) drug therapy
CPT/HCPCS: 90791; 90853

== ENCOUNTER 2021-11-25 15:17 | Emergency (ER) | payer OTHER, SELFPAY ==
[2021-11-25 15:18] VITALS: BP 138/85; PULSE 99; RESP 18; TEMP 36.9; O2SAT 98; BMI 38.7
== END 2021-11-25 18:20 | disposition left against medical advice (07) ==
PROVIDERS: Emergency Provider Emergency Medicine; PCP Internal Medicine
DX: F41.1 Generalized anxiety disorder (principal); F32.A Depression, unspecified; F60.3 Borderline personality disorder
CPT/HCPCS: 99281

== ENCOUNTER 2021-12-29 09:00 | Outpatient (RCR) | payer OTHER, SELFPAY ==
--- NOTE | 2021-12-11 13:51 | PC.ADMIT ---
Patient is a 51 year old single female who was referred to [facility] by [facility] where she was admitted d/t increase in depression symptoms and recent medication changes. Patient reported recent medication changes prior to hospitalization contributing to her symptoms. Patient reports she was experiencing Tardive Dyskensia and was taken off Rexulti as a result. Patient reports this put her in a tail spin and destabilized her mood. Patient reports she also experienced feeling foggy, confused, and unstable balance. Patient reports Lexapro was added. Patient is at [facility] for continual stabilization of depressive symptoms with some anxiety. Patient has attended [facility] in the past and found it helpful. Patient reports she is unable to attend [facility] on Wednesdays as she has her home health aid coming that day and she is unable to rescheduled to a later time. Patient is alert and oriented x4. Presents with depressed mood and affect. Denied SI. Medications reconciled with patient and d/c summary from [facility]. Patient reports she is no longer on Abilify and Meclizine. Patient reports taking medications as prescribed.
[2021-12-11 14:08] VITALS: BMI 39.4
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
--- NOTE | 2021-12-15 08:45 | PC.NURSE ---
case opened in treatment team
--- NOTE | 2021-12-15 14:29 | P.PNPSP_ITS ---
Subjective Subjective Date of Service: 12/15/21 Reason For Visit: MDD,ADHD recurrent Medical Problems Affecting Mental Status: No Interim History: Continues with dysphoric mood, anxiety, although improved. No SI/HI, no safety concerns. Reports still adjusting after stopping Rexulti. Awaiting insurance approval to start TMS. Finding groups helpful. Medication Compliance: Yes Side effects from medications: No Attending Groups: Yes Review of Systems Acute medical concerns: No Medical Review of Systems: unchanged Review of Systems Review of Systems Yes all other systems are reviewed and are negative Constitutional: Reports no additional constitutional complaints Mental Status Exam Mental Status Exam Narrative: NAD. No tics/tremors noted. Patient Appearance: Appropriate Patient Orientation: Person, Place, Time and Situation Level of Consciousness: Appropriate Patient Behavior: Appropriate, Cooperative and Good Eye Contact Mood Description: Calm and Depressed (reports lessened sx) Affect Description: Depressed (appears improving) Patient Cognition Impaired: No Ability to Follow Directions: Excellent Speech Pattern: Clear, Appropriate and Coherent Memory Description: Intact Hallucinations: None Delusions: Not Present Perceptual Disturbances: Depersonalization Thought Process: Intact Thought Content: positive for Intact Depressive Symptoms: Changes in Appetite (decreased), Sleeping More Than Usual, Loss of Int. in Activity and Low Self Esteem Judgement: Fair Diagnostics Vital Signs (24Hr): BMI result Body Mass Index 39.4 Assessment & Plan Assessment & Plan (1) Major depressive disorder, recurrent severe without psychotic features: Status: Acute Code(s): F33.2 - Major depressive disorder, recurrent severe without psychotic features Assessment and Plan: Continues with dysphoric mood, anxiety, although improved. Reports was able to go out with a friend over weekend. States she was able to relax while out. No SI/HI, no safety concerns. Reports still adjusting after stopping Rexulti. Reports that she had tried briefly to take it again, however symptoms of tardive dyskinesia worsened, so her provider had stopped it altogether. Currently taking Lexapro for depression sx, reports this has been an adjustment, as it does not address her symptoms of depression and anxiety as well as Rexulti had. Awaiting insurance approval to start TMS. States she understands it will be a commitment of daily treatment, but feels confident that she will be able to do this. Finding groups helpful. (2) Generalized anxiety disorder: Status: Acute Code(s): F41.1 - Generalized anxiety disorder Plan 1. Continue with current [facility] plan of care. 2. Continue with current medication regimen as prescribed by outpatient psychiatrist. 3. Follow-up as per protocol. Patient educated on: diagnosis, medication risk/benefits and therapeutic strategies Informed Consent: understands Reason for contiued partial hosp. stay Substantial Risk for: harm to self, inability to function, rapid decompensation and med/psych decompensation Certification I certify that partial hospital treatment is medically necessary due to the symptoms and problems resulting from the patient's mental illness and the failure to treat the patient at the partial hospital level of care would likely result in the patient requiring inpatient psychiatric care which could not be prevented at a less intensive level of care. I spent minutes with the patient and/or on the patient floor today, greater than?50% of which was spent counseling/coordinating care. Discharge Plan Discharge Attending provider: Jesus Ramirez Medications: No Action clonazepam [Klonopin] 0.5 mg Tablet 0.5 mg PO BEDTIME valacyclovir [Valtrex] 500 mg Tablet 500 mg PO DAILY trazodone 100 mg Tablet 300 mg PO BEDTIME montelukast [Singulair] 10 mg Tablet 10 mg PO BEDTIME dextroamphetamine-amphetamine [Adderall XR] 30 mg Capsule,Extended Release 24hr 60 mg PO DAILY Rx Instructions: Take 2 tabs daily oxycodone 10 mg Tablet 10 mg PO Q4H PRN (Reason: Pain) Rx Instructions: Immediate Release lorazepam 2 mg Tablet 2 mg PO BEDTIME PRN (Reason: Anxiety) lorazepam 1 mg Tablet 1 mg PO BID PRN (Reason: Anxiety) Label Comments: D/C instructions from [facility] stated take Q 8 Hrs PRN. Patient stated she is taking BID PRN escitalopram oxalate [Lexapro] 20 mg Tablet 20 mg PO DAILY Ingrezza 40 mg Capsule 40 mg PO DAILY Telehealth Telehealth Location of provider rendering services: practice address Location of patient: address on file Patient Identification confirmed using: Name, : Yes Telehealth method: video Patient verbally consented to treatment: Yes Patient verbally consented to billing insurance company: Yes Patient informed of any privacy concerns related to visit: Yes Minutes spent on Phone/Video with Pt.: 15
--- NOTE | 2021-12-22 14:24 | P.PNPSP_ITS ---
Subjective Subjective Date of Service: 12/22/21 Reason For Visit: MDD,ADHD recurrent Interim History: Patient presents for follow up No medication issues to reports. Reports challenging weekend which she processed in group Has been waiting for auth for TMS Review of Systems Constitutional: Reports as per HPI and Reports no additional constitutional complaints Mental Status Exam Mental Status Exam Narrative: NAD. No tics/tremors noted. Patient Appearance: Appropriate Patient Orientation: Person, Place, Time and Situation Level of Consciousness: Appropriate Patient Behavior: Appropriate, Cooperative and Good Eye Contact Mood Description: Calm and Depressed (reports lessened sx) Affect Description: Depressed (appears improving) Patient Cognition Impaired: No Ability to Follow Directions: Excellent Speech Pattern: Clear, Appropriate and Coherent Memory Description: Intact Hallucinations: None Delusions: Not Present Perceptual Disturbances: Depersonalization Thought Process: Intact Thought Content: positive for Intact Depressive Symptoms: Changes in Appetite (decreased), Sleeping More Than Usual, Loss of Int. in Activity and Low Self Esteem Judgement: Fair Diagnostics Vital Signs (24Hr): BMI result Body Mass Index 39.4 Assessment & Plan Assessment & Plan (1) Major depressive disorder, recurrent severe without psychotic features: Status: Acute Code(s): F33.2 - Major depressive disorder, recurrent severe without psychotic features Assessment and Plan: * no medication updates * follow up PRN Certification I certify that partial hospital treatment is medically necessary due to the symptoms and problems resulting from the patient's mental illness and the failure to treat the patient at the partial hospital level of care would likely result in the patient requiring inpatient psychiatric care which could not be prevented at a less intensive level of care. I spent minutes with the patient and/or on the patient floor today, greater than?50% of which was spent counseling/coordinating care. Discharge Plan Discharge Attending provider: Jesus Ramirez Medications: No Action clonazepam [Klonopin] 0.5 mg Tablet 0.5 mg PO BEDTIME valacyclovir [Valtrex] 500 mg Tablet 500 mg PO DAILY trazodone 100 mg Tablet 300 mg PO BEDTIME montelukast [Singulair] 10 mg Tablet 10 mg PO BEDTIME dextroamphetamine-amphetamine [Adderall XR] 30 mg Capsule,Extended Release 24hr 60 mg PO DAILY Rx Instructions: Take 2 tabs daily oxycodone 10 mg Tablet 10 mg PO Q4H PRN (Reason: Pain) Rx Instructions: Immediate Release lorazepam 2 mg Tablet 2 mg PO BEDTIME PRN (Reason: Anxiety) lorazepam 1 mg Tablet 1 mg PO BID PRN (Reason: Anxiety) Label Comments: D/C instructions from [facility] stated take Q 8 Hrs PRN. Patient stated she is taking BID PRN escitalopram oxalate [Lexapro] 20 mg Tablet 20 mg PO DAILY Ingrezza 40 mg Capsule 40 mg PO DAILY Telehealth Telehealth Location of provider rendering services: practice address Location of patient: address on file Patient Identification confirmed using: Name, : Yes Telehealth method: video Patient verbally consented to treatment: Yes Patient verbally consented to billing insurance company: Yes Patient informed of any privacy concerns related to visit: Yes Minutes spent on Phone/Video with Pt.: 15
--- NOTE | 2021-12-29 11:58 | PC.NURSE ---
Patient scheduled for routine discharge from [facility] today. She is feeling ready of discharge. Denied SI, no safety concerns. Reviewed patient medications with patient. Patient reports taking her medications as prescribed and appears to know what they are for.
--- NOTE | 2021-12-29 12:08 | P.PNPSP_ITS ---
Subjective Subjective Date of Service: 12/29/21 Reason For Visit: MDD,ADHD recurrent Medical Problems Affecting Mental Status: No Interim History: Describes mood as good . Feels ready for d/c from [facility] today. Has been approved for TMS, will proceed with the mapping with her outpatient psychiatrist. No SI/HI, no safety concerns. Expresses hope for the future. Medication Compliance: Yes Side effects from medications: No Attending Groups: Yes Review of Systems Acute medical concerns: No Medical Review of Systems: unchanged Review of Systems Review of Systems Yes all other systems are reviewed and are negative Constitutional: Reports no additional constitutional complaints Mental Status Exam Mental Status Exam Narrative: NAD. No tics/tremors noted. Patient Appearance: Appropriate Patient Orientation: Person, Place, Time and Situation Level of Consciousness: Appropriate Patient Behavior: Appropriate, Cooperative and Good Eye Contact Mood Description: Calm and Appropriate Affect Description: Calm and Appropriate Patient Cognition Impaired: No Ability to Follow Directions: Excellent Speech Pattern: Clear, Appropriate and Coherent Memory Description: Intact Hallucinations: None Delusions: Not Present Perceptual Disturbances: Depersonalization Thought Process: Intact Thought Content: positive for Intact Depressive Symptoms: Loss of Int. in Activity Judgement: Good Diagnostics Vital Signs (24Hr): BMI result Body Mass Index 39.4 Assessment & Plan Assessment & Plan (1) Major depressive disorder, recurrent severe without psychotic features: Status: Acute Code(s): F33.2 - Major depressive disorder, recurrent severe without psychotic features Assessment and Plan: Describes mood as good . Feels ready for d/c from [facility] today. No concerns with medications, and has follow-up appts scheduled with outpatient providers. Has been approved for TMS, will proceed with the mapping with her outpatient psychiatrist. No SI/HI, no safety concerns. Expresses hope for the future. Feels [facility] has been beneficial. (2) Generalized anxiety disorder: Status: Acute Code(s): F41.1 - Generalized anxiety disorder Assessment and Plan: Denies feeling anxiuos today. (3) Borderline personality disorder: Status: Acute Code(s): F60.3 - Borderline personality disorder Plan 1. Patient appears stable for discharge from [facility] today. Has plan in place to follow-up with outpatient providers going forward. Patient educated on: diagnosis, medication risk/benefits, TMS and therapeutic strategies Informed Consent: understands Reason for contiued partial hosp. stay Substantial Risk for: stable for discharge Certification I certify that partial hospital treatment is medically necessary due to the symptoms and problems resulting from the patient's mental illness and the failure to treat the patient at the partial hospital level of care would likely result in the patient requiring inpatient psychiatric care which could not be prevented at a less intensive level of care. I spent minutes with the patient and/or on the patient floor today, gr eater than?50% of which was spent counseling/coordinating care. Discharge Plan Discharge Attending provider: Jesus Ramirez Medications: No Action clonazepam [Klonopin] 0.5 mg Tablet 0.5 mg PO BEDTIME valacyclovir [Valtrex] 500 mg Tablet 500 mg PO DAILY trazodone 100 mg Tablet 300 mg PO BEDTIME montelukast [Singulair] 10 mg Tablet 10 mg PO BEDTIME dextroamphetamine-amphetamine [Adderall XR] 30 mg Capsule,Extended Release 24hr 60 mg PO DAILY Rx Instructions: Take 2 tabs daily oxycodone 10 mg Tablet 10 mg PO Q4H PRN (Reason: Pain) Rx Instructions: Immediate Release lorazepam 2 mg Tablet 2 mg PO BEDTIME PRN (Reason: Anxiety) lorazepam 1 mg Tablet 1 mg PO BID PRN (Reason: Anxiety) Label Comments: D/C instructions from [facility] stated take Q 8 Hrs PRN. Patient stated she is taking BID PRN escitalopram oxalate [Lexapro] 20 mg Tablet 20 mg PO DAILY Ingrezza 40 mg Capsule 40 mg PO DAILY Stand Alone Forms: Patient Portal Discharge page Patient Education: Depression (DC) Telehealth Telehealth Location of provider rendering services: practice address Location of patient: address on file Patient Identification confirmed using: Name, : Yes Telehealth method: video Patient verbally consented to treatment: Yes Patient verbally consented to billing insurance company: Yes Patient informed of any privacy concerns related to visit: Yes Minutes spent on Phone/Video with Pt.: 15
== END 2021-12-29 23:59 | disposition home or self-care (01) ==
LOC: HO.PHPA 09:00
PROVIDERS: Visit Provider Psychiatry & Neurology Psychiatry
DX: F33.2 Major depressive disorder, recurrent severe without psychotic features (principal); F41.1 Generalized anxiety disorder; F60.3 Borderline personality disorder; Z79.899 Other long term (current) drug therapy
CPT/HCPCS: 90791; 90853

== ENCOUNTER 2022-09-21 11:45 | Outpatient (RCR) | payer OTHER, SELFPAY ==
[2022-08-25 11:44] VITALS: BP 100/70; PULSE 76; TEMP 37.3
[2022-08-25 11:48] VITALS: BMI 34.8
--- NOTE | 2022-08-25 12:45 | PC.ADMIT ---
Patient is a 51 year old female who self presented to PHP d/t increased sxs of depression and anxiety and relates this to her recent dx of multiple pulmonary emboli and loss of people who she described as walking out of her life. Patient has been in PHP in the past and has found it helpful. Patient lives alone and identify's her mother as her support. Patient is on a leave of absence from her current job to work on her mental health. Patient fears she will not feel better. Patient is alert and oriented x4. Calm and cooperative. Presents with depressed mood and affect. She reports having passive SI however denied currently. Denied any suicidal plans or intent. Patient given a copy of her safety plan if needed. Medications reconciled with patients's pharmacies and patient. Patient reports she is taking her medications as prescribed and is no longer on Pregabalin and Modafinil as she has tried the medications with no effect.
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
--- NOTE | 2022-08-27 08:40 | HO.PHP ---
The clients case was reviewed and opened in treatment team
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
--- NOTE | 2022-09-01 09:28 | PC.NURSE ---
Zena called staff and stated she will not be in today as she woke up late. Plans to be at the program tomorrow.
--- NOTE | 2022-09-02 08:39 | PC.NURSE ---
Zena called Shira to tell her she will not be in the program today. Stated she is having chest pain and is gong to call her PCP to f/u.
--- NOTE | 2022-09-02 08:44 | PC.NURSE ---
I called Zena and recommended she call 911 if she is having chest pain as she has a history of pulmonary emboli. She stated she has a call out to her PCP and wants to wait for their recommendation. I again recommended she call 911 d/t her history however she is waiting for her PCP recommendation.
--- NOTE | 2022-09-07 09:33 | PC.NURSE ---
Zena not scheduled at [facility] today. She stated she has an appointment for and Electrocardiogram and OBGYN appointment as well.
--- NOTE | 2022-09-13 11:40 | HO.PHPPROGNO ---
Mental Status Exam Mental Status Exam Narrative: She Patient Appearance: Well Grooomed Patient Orientation: Person, Place, Time and Situation Level of Consciousness: Appropriate Patient Behavior: Appropriate, Cooperative and Good Eye Contact Mood Description: Depressed and Anxious Affect Description: Depressed and Anxious Patient Cognition Impaired: No Ability to Follow Directions: Excellent Speech Pattern: Clear and Appropriate Memory Description: Intact Hallucinations: None Delusions: Not Present Thought Process: Intact Thought Content: positive for Intact Depressive Symptoms: Increased Anxiety, Changes in Appetite (reduced), Loss of Int. in Activity, Increased Fatigue, Low Self Esteem and Loss of Energy Judgement: Fair Diagnostics Vital Signs (24Hr): BMI result Body Mass Index 34.8 Assessment & Plan Assessment & Plan (1) Major depressive disorder, recurrent severe without psychotic features: Status: Acute Code(s): F33.2 - Major depressive disorder, recurrent severe without psychotic features (2) Generalized anxiety disorder: Status: Acute Code(s): F41.1 - Generalized anxiety disorder Plan Might consider L methyl folate for augmentation patient has a history tardive dyskinesia home [facility] Arech[facility] in past. Maintain Lexapro could consider nortriptyline if needed needs hematology workup for clotting disorder given pulmonary embolism be seeing Dr. Fabian remy had good response to TMS last year patient finds partial hospital helpful for safety and stabilization Patient educated on: diagnosis, medication risk/benefits, TMS and medical condition Informed Consent: understands Reason for contiued partial hosp. stay Substantial Risk for: inability to function and rapid decompensation Certification I certify that partial hospital treatment is medically necessary due to the symptoms and problems resulting from the patient's mental illness and the failure to treat the patient at the partial hospital level of care would likely result in the patient requiring inpatient psychiatric care which could not be prevented at a less intensive level of care. Total time managing care of this patient today _28___ minutes. Discharge Plan Discharge Attending provider: Jesus Ramirez Medications: No Action clonazepam [Klonopin] 0.5 mg Tablet 0.5 mg PO DAILY PRN (Reason: Anxiety) valacyclovir [Valtrex] 500 mg Tablet 500 mg PO DAILY trazodone 100 mg Tablet 300 mg PO BEDTIME montelukast [Singulair] 10 mg Tablet 10 mg PO BEDTIME dextroamphetamine-amphetamine [Adderall XR] 30 mg Capsule,Extended Release 24hr 60 mg PO DAILY Rx Instructions: Take 2 tabs daily oxycodone 10 mg Tablet 10 mg PO Q4H PRN (Reason: Pain) Rx Instructions: Immediate Release lorazepam 2 mg tablet 1 mg PO BID lorazepam 2 mg Tablet 2 mg PO BEDTIME baclofen 10 mg Tablet 10 mg PO BEDTIME Eliquis 5 mg Tablet 5 mg PO BID albuterol sulfate [Ventolin HFA] 90 mcg/actuation HFA aerosol inhaler 2 puff inhalation Q6H PRN (Reason: wheezing) escitalopram oxalate [Lexapro] 20 mg Tablet 20 mg PO DAILY
--- NOTE | 2022-09-20 09:35 | HO.PHP ---
I called the client to inquire about her absence. She states that she is not coming in because she does not feel well and fell back to sleep before she could call. She states that she plans to be in tomorrow
--- NOTE | 2022-09-21 10:53 | HO.PHPPROGNO ---
Subjective Subjective Date of Service: 09/21/22 Reason For Visit: MDD,ADHD Medical Problems Affecting Mental Status: No Interim History: Patient reports ongoing depression, anxiety. No SI, no safety concerns. Requesting discharge today, feels safe. Has several upcoming medical appointments. Also has mapping appointment for TMS this Tuesday, will start TMS Tuesday, through her outpatient provider Feels ready for discharge at this time.. Medication Compliance: Yes Side effects from medications: No Attending Groups: Yes Review of Systems Acute medical concerns: No Medical Review of Systems: unchanged Review of Systems Review of Systems Yes all other systems are reviewed and are negative Constitutional: Reports no additional constitutional complaints Mental Status Exam Mental Status Exam Patient Appearance: Well Grooomed Patient Orientation: Person, Place, Time and Situation Level of Consciousness: Appropriate Patient Behavior: Appropriate, Cooperative and Good Eye Contact Mood Description: Appropriate and Depressed Affect Description: Appropriate and Depressed Patient Cognition Impaired: No Ability to Follow Directions: Excellent Speech Pattern: Clear and Appropriate Memory Description: Intact Hallucinations: None Delusions: Not Present Thought Process: Intact Thought Content: positive for Intact Depressive Symptoms: Increased Anxiety, Low Self Esteem and Loss of Energy Judgement: Good Diagnostics Vital Signs (24Hr): BMI result Body Mass Index 34.8 Assessment & Plan Assessment & Plan (1) Major depressive disorder, recurrent severe without psychotic features: Status: Acute Code(s): F33.2 - Major depressive disorder, recurrent severe without psychotic features Assessment and Plan: Continues with depression, although appears to be slightly improved. Plans to start TMS Tuesday. Continues with medical issues regarding embolisms, has several upcoming appointments with specialists scheduled. No SI, no safety concerns. Satisfied with current medication regimen. Feels ready for discharge from [facility] at this time. (2) Generalized anxiety disorder: Status: Acute Code(s): F41.1 - Generalized anxiety disorder (3) Borderline personality disorder: Status: Acute Code(s): F60.3 - Borderline personality disorder Plan 1. Patient appears stable for discharge from [facility] at this time. 2. Patient to follow-up with outpatient providers going forward. Patient educated on: diagnosis, medication risk/benefits and therapeutic strategies Informed Consent: understands Reason for contiued partial hosp. stay Substantial Risk for: stable for discharge Certification I certify that partial hospital treatment is medically necessary due to the symptoms and problems resulting from the patient's mental illness and the failure to treat the patient at the partial hospital level of care would likely result in the patient requiring inpatient psychiatric care which could not be prevented at a less intensive level of care. Total time managing care of this patient today _20___ minutes. Discharge Plan Discharge Attending provider: Jesus Ramirez Medications: No Action clonazepam [Klonopin] 0.5 mg Tablet 0.5 mg PO DAILY PRN (Reason: Anxiety) valacyclovir [Valtrex] 500 mg Tablet 500 mg PO DAILY trazodone 100 mg Tablet 300 mg PO BEDTIME montelukast [Singulair] 10 mg Tablet 10 mg PO BEDTIME oxycodone 10 mg Tablet 10 mg PO Q4H PRN (Reason: Pain) Rx Instructions: Immediate Release lorazepam 2 mg tablet 1 mg PO BID lorazepam 2 mg Tablet 2 mg PO BEDTIME baclofen 10 mg Tablet 10 mg PO BEDTIME Eliquis 5 mg Tablet 5 mg PO BID albuterol sulfate [Ventolin HFA] 90 mcg/actuation HFA aerosol inhaler 2 puff inhalation Q6H PRN (Reason: wheezing) modafinil [Provigil] 200 mg tablet 200 mg PO BID escitalopram oxalate [Lexapro] 20 mg Tablet 20 mg PO DAILY Stand Alone Forms: Patient Portal Discharge page Patient Education: Depression (DC)
== END 2022-09-21 23:59 | disposition home or self-care (01) ==
LOC: HO.PHPA 11:45
PROVIDERS: Visit Provider Psychiatry & Neurology Psychiatry
DX: F33.2 Major depressive disorder, recurrent severe without psychotic features (principal); F41.1 Generalized anxiety disorder; F60.3 Borderline personality disorder
CPT/HCPCS: 90791; 90853

== ENCOUNTER → 2025-03-12 09:30 | Outpatient (BNV) | payer OTHER, SELFPAY | PROVIDERS: Visit Provider Psychiatry & Neurology Psychiatry | DX: F33.2 Major depressive disorder, recurrent severe without psychotic features (principal); F41.1 Generalized anxiety disorder; F60.3 Borderline personality disorder | CPT/HCPCS: 90792; 99213 ==

== ENCOUNTER 2025-03-14 09:30 | Outpatient (RCR) | payer OTHER, SELFPAY ==
[2025-02-25 13:11] VITALS: BMI 40.7
[2025-02-25 13:12] VITALS: BP 134/68; PULSE 68; TEMP 37.3
--- NOTE | 2025-02-25 13:44 | PC.ADMIT ---
Patient is a 54 year old female with a history of bipolar II disorder. Patient self referred to [facility] secondary to increase anxiety and depression sxs. Patient has attended PHP in the past and has found it effective. Patient reports stresses include upcoming spinal fusion surgery on her neck and her mother whom will be staying with her after the surgery for a few weeks. Patient is alert and oriented x4. She is calm and cooperative. She presented with depressed mood and anxious affect. She denied SI, no HI. She was given a copy of her safety plan if needed. Medications updated with patient and patient's pharmacy. She reports taking her medications as prescribed. She reports she is no longer on Buspar as her psychiatrist took her off of this medication.
--- NOTE | 2025-02-28 15:24 | HO.PHP ---
Patients case was opened in weekly team treatment meeting
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
--- NOTE | 2025-03-14 12:08 | P.PNPSP_ITS ---
Subjective Subjective Date of Service: 03/14/25 Reason For Visit: MDD Healthcare Proxy: No Guardianship: No Medical Problems Affecting Mental Status: No Interim History: Patient was seen today on the day of her discharge. From admission note: Patient is a 54 year old female, with history of Bipolar II Disorder, protein S disorder, chronic back pain, herniated disc self referred to [facility] by her outpatient provider due to increased sx of depression and anxiety. Ms. Patient is known to [facility] from multiple admissions in the past. She was last here in 09/2022, I've just been restless, down, anxious, I have no structure. It's been going on for a while . Lots of ups and downs. History of impulsive spending, unprotected sex, risk taking on and off in past year, but can not recall last hypomanic episode, complains of lethargy, lack of motivation, spends extended periods of time staying in a chair, not caring for ADLs, sleeping too much. She has a long history of depression singe age 16. Longstanding history of treatment. Satisfied with current medication regimen, and would prefer to focus on the groups while here. She reports she finds support and strength in the groups, and learning/practicing healthy coping skills. Denies any SI/HI, no thought of harm to self or others in any way. Feels safe. No AH/VH. Past Psychiatric History: Med trials: multiple in past. TMS in 2021, found it effective. IP: [facility], 11/27/21-12/03/21. Multiple [facility] stays at [facility]. Respite 1X through [facility]. Has psychiatrist (Alvina Rome), therapist, and a PCP. Previous medications trials: Abilify, Rexulti, ZOloft, Effexor, Lyrica, Lamictal, Buspar Current medications were reviewed and maintained. She does have an appointment with her psychiatrist on 03/18, Dr. Alvina Rome. She is being connected to therapist also Medication Compliance: Yes Side effects from medications: No Review of Systems Review of Systems Neck pain and upcoming surgery Yes all other systems are reviewed and are negative Mental Status Exam Mental Status Exam Narrative: In today's visit she is alert, oriented and pleasant. Normal speech. Good eye contact. Affect is appropriate and varied. No acute signs of psychosis/depression. No delusions. She denies any SI/HI. Cognitively is intact. She is able to move all limbs. No gait abnormalities. Judgment is intact Diagnostics Vital Signs (24Hr): BMI result Body Mass Index 40.7 Assessment & Plan Assessment & Plan (1) Major depressive disorder, recurrent severe without psychotic features: Status: Acute Code(s): F33.2 - Major depressive disorder, recurrent severe without psychotic features Plan She is being discharged to self. She will maintain her current medications and outpatient connections and appointments. No new prescriptions were sent in Patient educated on: diagnosis and medication risk/benefits Certification I certify that partial hospital treatment is medically necessary due to the symptoms and problems resulting from the patient's mental illness and the failure to treat the patient at the partial hospital level of care would likely result in the patient requiring inpatient psychiatric care which could not be prevented at a less intensive level of care. Total time managing care of this patient today ____ minutes. Discharge Plan Discharge Attending provider: Teresita Machado Medications: No Action valacyclovir [Valtrex] 500 mg Tablet 500 mg PO DAILY montelukast [Singulair] 10 mg Tablet 10 mg PO BEDTIME oxycodone 10 mg Tablet 10 mg PO Q4H PRN (Reason: Pain) Rx Instructions: Immediate Release Eliquis 5 mg Tablet 5 mg PO BID albuterol sulfate [Ventolin HFA] 90 mcg/actuation HFA aerosol inhaler 2 puff inhalation Q6H PRN (Reason: wheezing) escitalopram oxalate [Lexapro] 20 mg Tablet 20 mg PO DAILY Austedo XR 12 mg tablet extended release 24 hr 12 mg PO DAILY Austedo XR 24 mg tablet extended release 24 hr 24 mg PO DAILY ropinirole 1 mg tablet 1 mg PO BEDTIME metronidazole 250 mg tablet 250 mg PO TID Rx Instructions: x 10 days. omeprazole 40 mg capsule,delayed release(DR/EC) 40 mg PO BID gabapentin 300 mg capsule 300 mg PO TID lorazepam 1 mg tablet 1 mg PO TID PRN (Reason: anxiety) Rx Instructions: New Prescription by outside prescriber filled 03/07/25. lithium carbonate 300 mg tablet 300 mg PO BEDTIME levocetirizine 5 mg tablet 5 mg PO DAILY cyanocobalamin (vitamin B-12) 1,000 mcg tablet 2,000 mcg PO DAILY Rx Instructions: TAKE 2 TABLETS BY MOUTH 1 TIME EACH DAY. trazodone 100 mg tablet 300 mg PO BEDTIME PRN (Reason: insomnia) Rx Instructions: TAKE 3 TABLETS BY MOUTH EVERY NIGHT NEEDED FOR INSOMNIA cholecalciferol (vitamin D3) 50 mcg (2,000 unit) tablet 50 mcg PO DAILY Print Language: Filipino
== END 2025-03-14 23:59 | disposition home or self-care (01) ==
LOC: HO.PHPA 09:30
PROVIDERS: Visit Provider Psychiatry & Neurology Psychiatry
DX: F33.2 Major depressive disorder, recurrent severe without psychotic features (principal); F41.1 Generalized anxiety disorder; F60.3 Borderline personality disorder
CPT/HCPCS: 90791; 90853